=== PATIENT | male | born 1940 | race Caucasian/White ===

== ENCOUNTER → 2019-01-11 | Outpatient (CLI) | payer OTHER, MEDICARE ==
[~2019-01-11] MED LIST: AMLO10 PO; ASCO500; ASPI325 PO; CYAN1000I; FOLI1 PO; HYDCHL12.5 PO; LOVA40; Multiple Vitam1 EAC1; PANT40 PO; PYRI100; RANI150 PO; Ramipril10 MG; SILDENAFIL20 MG; TOCO1000
[2019-01-12 13:07] LABS: FATS, NEUTRAL Normal (.); FATS, TOTAL Normal (.)
== END | disposition home or self-care (01) ==
LOC: LAB EV 03:00
PROVIDERS: Internal Medicine Gastroenterology
DX: R19.7 Diarrhea, unspecified (principal)
CPT/HCPCS: 82705

== ENCOUNTER → 2019-01-12 | Outpatient (CLI) | payer OTHER, MEDICARE | END | disposition home or self-care (01) | LOC: LAB EV 08:00 | DX: R19.7 Diarrhea, unspecified (principal) | CPT/HCPCS: 87329 ==

== ENCOUNTER 2019-01-18 09:27 | Day surgery (SDC) | payer OTHER, MEDICARE ==
[~2019-01-18] VITALS: Ht 172.7 cm; Wt 67.9 kg
--- NOTE | 2019-01-18 11:09 | NUR ---
01/18/19 1109 Dallin Laguna 1ST IV ATTEMPT IN RH UNSUCCESSFUL, ORSC.BDK 2ND IV ATTEMPT IN RAC UNSUCCESSFUL, ORSC.BDK 3RD IV ATTEMPT IN RH UNSUCCESSFUL, ORSC.NVP 4TH IV ATTEMPT IN LFA SUCCESSFUL, ORSC.NVP
== END 2019-01-18 12:58 | disposition home or self-care (01) ==
LOC: ORSCSDS 09:27
PROVIDERS: Internal Medicine Gastroenterology
PROC: 0DBB8ZX Excision of Ileum, Via Natural or Artificial Opening Endoscopic, Diagnostic (ICD-10-PCS; principal; 2019-01-18 11:00)
PROC: 0DB58ZX Excision of Esophagus, Via Natural or Artificial Opening Endoscopic, Diagnostic (ICD-10-PCS; principal; 2019-01-18 11:00)
PROC: 0DBE8ZX Excision of Large Intestine, Via Natural or Artificial Opening Endoscopic, Diagnostic (ICD-10-PCS; principal; 2019-01-18 11:00)
PROC: 0DB68ZX Excision of Stomach, Via Natural or Artificial Opening Endoscopic, Diagnostic (ICD-10-PCS; principal; 2019-01-18 11:00)
DX: R19.7 Diarrhea, unspecified (principal); R63.4 Abnormal weight loss; K52.831 Collagenous colitis; K44.9 Diaphragmatic hernia without obstruction or gangrene; K64.8 Other hemorrhoids; F17.210 Nicotine dependence, cigarettes, uncomplicated; I10 Essential (primary) hypertension; I25.2 Old myocardial infarction; J44.9 Chronic obstructive pulmonary disease, unspecified; E78.5 Hyperlipidemia, unspecified; Z79.899 Other long term (current) drug therapy
CPT/HCPCS: 88305; 88313; 88342; J2250; J2704; J7120

== ENCOUNTER → 2019-01-23 | Outpatient (CLI) | payer OTHER, MEDICARE | LOC: LAB SHORT 09:46 → LAB 09:46 → LAB FUT 01-09 14:00 → EDSTATUS 01-09 14:00 | PROVIDERS: Internal Medicine Gastroenterology | DX: R19.7 Diarrhea, unspecified (principal) | CPT/HCPCS: 36415; 84302; 84999 ==

== ENCOUNTER 2020-08-06 10:19 | Day surgery (SDC) | payer MEDICARE ==
[~2020-08-06] VITALS: Ht 167.6 cm; Wt 76.0 kg
[2020-08-06] MEDS ORDERED: ASPIR 8181 M1 PO (10:56)
[2020-08-06] MEDS ORDERED: Chantix1 MG PO (10:57)
--- NOTE | 2020-08-06 13:20 | NUR ---
PT RETURNED TO RECOVERY ROOM IN BED. BILAT GROINS SOFT NON-TENDER WITH NO HEMATOMAS OR BLEEDING AND INTACT DRESSINGS. PT DENIES BACK PAIN OR CHEST PAIN.BILAT DOPPLER DP PULSES. CALL LIGHT IN REACH.
--- NOTE | 2020-08-06 16:07 | NUR ---
PT DRESSED, IV DC'D INTACT, PT DC'D BY WC WITH DRIVING PT HOME, PT AMB TO BTR OK
[2020-10-11] MEDS ORDERED: Prednisone20 MG PO (02:43)
[2020-10-11] MEDS ORDERED: Norco 5-325 Ta1 EACH PO (02:43)
== END 2020-08-06 16:30 | disposition home or self-care (01) ==
LOC: MHTC 10:19
DX: I70.213 Atherosclerosis of native arteries of extremities with intermittent claudication, bilateral legs (principal)
CPT/HCPCS: 75625; 75716; 76937; 99152; 99153; C1725; C1757; C1769; C1876; C1887; C1894; C9765; J1644; J2250; J3010; J7030; J7050; Q9967

== ENCOUNTER → 2023-05-25 | Outpatient (CLI) | payer MEDICARE ==
[~2023-05-25] MED LIST changes: +ASPIR 8181 M1 PO; +Aspir 8181 MG PO; +CEPH500 PO; +Chantix1 MG PO; +FISH OIL 1,2001 EAC7 PO; +FLOMAX0.4 MG PO; +GLUCHON PO; +HYDCHL25 PO; +MULVITA PO; +Norco 5-325 Ta1 EACH PO; +PANTOPRAZOLE SO40 M2 PO; +PLAVIX75 MG PO; +PSYLLIUM FIBER0.4 GM PO; +Prednisone20 MG PO; +ROSUVASTATIN CA20 MG PO; +VITAMIN D31250 MC2 PO
[2023-05-25 13:10] LABS: BASOPHILS ABSOLUTE AUTO 0.04 K/mm3 (0.00-0.23); BASOPHILS PERCENT AUTO 1 % (0-2); EOSINOPHILS ABSOLUTE AUTO 0.23 K/mm3 (0.00-0.68); EOSINOPHILS PERCENT AUTO 3 % (0-6); Hematocrit 34.9 % (37.0-53.0); Hemoglobin 11.4 g/dL (13.5-17.5); IMMATURE GRAN PERCENT AUTO 2 % (0-1); LYMPHOCYTES PERCENT AUTO 6 % (21-46); MONOCYTES ABSOLUTE AUTO 1.05 K/mm3 (0.16-1.47); MONOCYTES PERCENT AUTO 12 % (4-13); Mean Corpuscular HGB 29.8 pg (26.0-34.0); Mean Corpuscular HGB Conc 32.7 g/dL (31.5-36.5); Mean Corpuscular Volume 91 fL (80-100); Mean Platelet Volume 10.4 fL (9.1-12.4); NEUTROPHILS ABSOLUTE AUTO 6.58 K/mm3 (1.96-9.15); NEUTROPHILS PERCENT AUTO 77 % (41-73); NRBC ABSOLUTE 0.02 K/mm3 (0.00-0.02); NRBC Auto 0.2 /100 WBC (0.0-0.2); Platelet Count 335 K/mm3 (150-400); RDW Coefficient Variation 17.9 % (11.7-14.2); RDW Standard Deviation 52.1 fL (35.1-46.3); Red Blood Cell Count 3.82 M/mm3 (4.30-5.90)
[2023-05-25 13:36] LABS: Albumin, Blood 2.9 g/dL (3.4-5.0); Albumin/Globulin Ratio 0.6 (0.8-1.8); Bilirubin, Total 0.6 mg/dL (0.1-1.0); Bun/Creatinine Ratio 22.7 (12.0-20.0); Creatinine, Blood 1.28 mg/dL (0.60-1.20); Globulin, Blood 4.5 g/dL (2.2-4.0); Potassium, Blood 4.1 mmol/L (3.5-5.5); Total Protein, Blood 7.4 g/dL (6.4-8.2)
== END | disposition home or self-care (01) ==
LOC: LAB SHORT 12:39 → LAB 12:39 → LAB FUT 04-28 09:15
PROVIDERS: Internal Medicine Hematology & Oncology
DX: C67.9 Malignant neoplasm of bladder, unspecified (principal)
CPT/HCPCS: 36415; 80053; 85025

== ENCOUNTER 2023-05-27 14:58 | Emergency (ER) | payer MEDICARE ==
[~2023-05-27] VITALS: Ht 172.7 cm; Wt 83.9 kg
[~2023-05-27 14:58] MED LIST changes: -Aspir 8181 MG PO; -CEPH500 PO; -FISH OIL 1,2001 EAC7 PO; -FLOMAX0.4 MG PO; -GLUCHON PO; -HYDCHL25 PO; -MULVITA PO; -PANTOPRAZOLE SO40 M2 PO; -PLAVIX75 MG PO; -PSYLLIUM FIBER0.4 GM PO; -ROSUVASTATIN CA20 MG PO; -VITAMIN D31250 MC2 PO
[2023-05-27] MEDS ORDERED: PANTOPRAZOLE SO40 M2 PO (15:13)
[2023-05-27] MEDS ORDERED: ROSUVASTATIN CA20 MG PO (15:13)
[2023-05-27] MEDS ORDERED: PLAVIX75 MG PO (15:14)
[2023-05-27] MEDS ORDERED: HYDCHL25 PO (15:14)
[2023-05-27] MEDS ORDERED: Aspir 8181 MG PO (15:20)
[2023-05-27] MEDS ORDERED: FLOMAX0.4 MG PO (15:20)
[2023-05-27] MEDS ORDERED: MULVITA PO (15:20)
[2023-05-27] MEDS ORDERED: FISH OIL 1,2001 EAC7 PO (15:21)
[2023-05-27] MEDS ORDERED: PSYLLIUM FIBER0.4 GM PO (15:21)
[2023-05-27] MEDS ORDERED: GLUCHON PO (15:22)
[2023-05-27] MEDS ORDERED: VITAMIN D31250 MC2 PO (15:22)
[2023-05-27 16:13] LABS: Source, Urine Foley catheter
[2023-05-27 16:20] LABS: Appearance, Urine Cloudy (Clear); Bilirubin, Urine Neg (Neg); Blood, Urine 5+ (Neg); Color, Urine Amber (P-Yellow); Glucose Qualitative, Urine Neg (Neg); Ketones, Urine Neg (Neg); Leukocyte Esterase, Urine 3+ (Neg); Nitrite, Urine Neg (Neg); Protein, Urine 4+ (Neg); Specific Gravity, Urine 1.015 (1.003-1.022); Urobilinogen, Urine NORM (Normal)
[2023-05-27 16:26] LABS: Bacteria Many /hpf; Red Blood Cells, Urine TNTC /hpf (0-2); Squamous Epithelial Cells Not Seen /hpf (Few); White Blood Cells, Urine TNTC /hpf (0-5)
[2023-05-27] MEDS ORDERED: CEPH500 PO (16:51)
[2023-05-27 19:00] VITALS: BP 134/66
== END 2023-05-27 19:28 | disposition home or self-care (01) ==
LOC: ER 14:58
PROVIDERS: Physician Assistant
DX: N39.0 Urinary tract infection, site not specified (principal); K21.9 Gastro-esophageal reflux disease without esophagitis; F17.200 Nicotine dependence, unspecified, uncomplicated; Z79.899 Other long term (current) drug therapy; Z79.52 Long term (current) use of systemic steroids
CPT/HCPCS: 51702; 81001; 87077; 87086; 87186; 96360; 99284-25; A9270; J7030

== ENCOUNTER → 2023-06-03 | Outpatient (CLI) | payer MEDICARE ==
[~2023-06-03] MED LIST changes: +Aspir 8181 MG PO; +CEPH500 PO; +FISH OIL 1,2001 EAC7 PO; +FLOMAX0.4 MG PO; +GLUCHON PO; +HYDCHL25 PO; +MULVITA PO; +PANTOPRAZOLE SO40 M2 PO; +PLAVIX75 MG PO; +PSYLLIUM FIBER0.4 GM PO; +ROSUVASTATIN CA20 MG PO; +VITAMIN D31250 MC2 PO
[2023-06-03 15:03] LABS: C DIFFICILE DNA NEGATIVE (Negative)
== END | disposition home or self-care (01) ==
LOC: LAB 10:00 → LAB SHORT 10:00
PROVIDERS: Radiology Radiation Oncology
DX: C67.2 Malignant neoplasm of lateral wall of bladder (principal); R19.7 Diarrhea, unspecified
CPT/HCPCS: 87493

== ENCOUNTER → 2023-06-29 | Outpatient (CLI) | payer MEDICARE | LOC: LAB SHORT 13:18 → LAB 13:18 | DX: N39.0 Urinary tract infection, site not specified (principal) | CPT/HCPCS: 87086 ==

== ENCOUNTER 2023-07-12 07:22 | Day surgery (SDC) | payer MEDICARE ==
[2023-07-12] VITALS (9 sets, daily range): BP systolic 125–164; BP diastolic 66–90
[~2023-07-12] VITALS: Ht 172.7 cm; Wt 69.0 kg
[~2023-07-12 07:22] MED LIST changes: +ELLURA200 MG PO; +MYRBETRIQ8 MG/1 ML PO; +OXYC5 PO
[2023-07-12] MEDS ORDERED: NS 1,000 ML IV ONE (07:41)
[2023-07-12] MEDS ORDERED: Midazolam HCl 1MG / ML 2ML Vial ONE ×2 (08:29→09:28)
[2023-07-12] MEDS ORDERED: FentaNYL Citrate 50 MCG/ML 2 ML Injection ONE ×2 (08:29→09:22)
[2023-07-12] MEDS ORDERED: NS 500 ML IV ONE (08:29)
--- NOTE | 2023-07-12 13:40 | NUR ---
PT VERBALIZED UNDERSTANDING OF WRITTEN AND VERBAL D/C INST. ABD BINDER AND 2 LARGE CATH BAGS GIVEN TO PT. ABD BINDER PLACED ON D/C. IV REMOVED. PT TAKEN OUT OF THE HRT CENTER VIA W/C.
== END 2023-07-12 13:15 | disposition home or self-care (01) ==
LOC: SDS 07:22 → MHTC 07:23 → SDS 13:15
DX: N13.30 Unspecified hydronephrosis (principal); N32.0 Bladder-neck obstruction; F17.210 Nicotine dependence, cigarettes, uncomplicated; I25.2 Old myocardial infarction; K21.9 Gastro-esophageal reflux disease without esophagitis; E78.5 Hyperlipidemia, unspecified; I10 Essential (primary) hypertension; Z79.82 Long term (current) use of aspirin; I25.10 Atherosclerotic heart disease of native coronary artery without angina pectoris; Z79.02 Long term (current) use of antithrombotics/antiplatelets
CPT/HCPCS: 50432; 50693; 76937; 99152; 99153; C1725; C1729; C1769; C1887; C1894; C2617; J2250; J3010; J7030; J7040; Q9967

== ENCOUNTER 2023-07-26 11:33 | Day surgery (SDC) | payer MEDICARE ==
[~2023-07-26] VITALS: Ht 172.7 cm; Wt 69.0 kg
[2023-07-26] MEDS ORDERED: NS 250 ML IV ONE (11:46)
[2023-07-26 11:47] VITALS: BP 163/71
[2023-07-26 12:36] VITALS: BP 145/71
--- NOTE | 2023-07-26 12:49 | NUR ---
PT AND S/O VERBALIZES UNDERSTANDING WRITTEN AND VERBAL INSTRUCTIONS. VSS. SALVATORE. PT ASSISTED WITH DRESSING HIMSELF. TOLERATES WELL. PT DC TO HOME VIA WC BY S/O
== END 2023-07-26 12:52 | disposition home or self-care (01) ==
LOC: MHTC 11:33 → ORSCMMR 11:36 → MHTC 11:36
DX: N99.522 Malfunction of incontinent external stoma of urinary tract (principal); N13.30 Unspecified hydronephrosis; N99.528 Other complication of incontinent external stoma of urinary tract; N13.4 Hydroureter; N32.0 Bladder-neck obstruction; F17.210 Nicotine dependence, cigarettes, uncomplicated; I25.2 Old myocardial infarction; K21.9 Gastro-esophageal reflux disease without esophagitis; I25.10 Atherosclerotic heart disease of native coronary artery without angina pectoris; E78.5 Hyperlipidemia, unspecified
CPT/HCPCS: 50435; C1729; C1769; J7050; Q9967

== ENCOUNTER 2023-10-01 23:42 | Inpatient (IN) | payer MEDICARE ==
[~2023-10-01] VITALS: Ht 172.7 cm; Wt 74.8 kg
[~2023-10-01 23:42] MED LIST changes: +DOCUZEN 8.6-501 EACH PO; +GABA300 PO; +MYRBETRIQ50 MG PO; +POLY500 PO; +SULTRIDS PO
[2023-10-02] MEDS ORDERED: Ondansetron HCl 2 MG / ML 2ML Vial IV PRN (01:40)
[2023-10-02] MEDS ORDERED: Acetaminophen 325 MG TABLET PO PRN (01:40)
[2023-10-02] MEDS ORDERED: FentaNYL Citrate 50 MCG/ML 2 ML Injection IV PRN (01:40)
[2023-10-02] MEDS ORDERED: SULTRIDS PO (01:49)
[2023-10-02 02:07] LABS: International Normalized Ratio 0.97; Prothrombin Time Results 10.4 Sec (9.7-11.5)
[2023-10-02 02:09] LABS: Albumin, Blood 2.3 g/dL (3.4-5.0); Albumin/Globulin Ratio 0.6 (0.8-1.8); Bilirubin, Total 0.2 mg/dL (0.1-1.0); Bun/Creatinine Ratio 13.2 (12.0-20.0); Calcium, Blood 8.5 mg/dL (8.5-10.1); Creatinine, Blood 1.06 mg/dL (0.60-1.20); Globulin, Blood 4.1 g/dL (2.2-4.0); Potassium, Blood 3.9 mmol/L (3.5-5.5); Total Protein, Blood 6.4 g/dL (6.4-8.2)
[2023-10-02 02:10] LABS: BASOPHILS ABSOLUTE AUTO 0.02 K/mm3 (0.00-0.23); BASOPHILS PERCENT AUTO 0 % (0-2); EOSINOPHILS PERCENT AUTO 3 % (0-6); Hematocrit 28.1 % (37.0-53.0); Hemoglobin 8.9 g/dL (13.5-17.5); IMMATURE GRAN ABSOLUTE AUTO 0.05 K/mm3 (0.00-0.10); IMMATURE GRAN PERCENT AUTO 1 % (0-1); LYMPHOCYTES ABSOLUTE AUTO 1.06 K/mm3 (0.84-5.20); LYMPHOCYTES PERCENT AUTO 18 % (21-46); MONOCYTES ABSOLUTE AUTO 0.58 K/mm3 (0.16-1.47); MONOCYTES PERCENT AUTO 10 % (4-13); Mean Corpuscular HGB 27.4 pg (26.0-34.0); Mean Corpuscular HGB Conc 31.7 g/dL (31.5-36.5); Mean Corpuscular Volume 87 fL (80-100); Mean Platelet Volume 9.7 fL (9.1-12.4); NEUTROPHILS ABSOLUTE AUTO 3.97 K/mm3 (1.96-9.15); NEUTROPHILS PERCENT AUTO 68 % (41-73); Platelet Count 312 K/mm3 (150-400); RDW Coefficient Variation 16.6 % (11.7-14.2); RDW Standard Deviation 52.4 fL (35.1-46.3); Red Blood Cell Count 3.25 M/mm3 (4.30-5.90); White Blood Cell Count 5.88 K/mm3 (4.00-11.30)
[2023-10-02 02:14] LABS: Source, Urine Clean Catch
[2023-10-02 02:17] LABS: Bilirubin, Urine Neg (Neg); Blood, Urine 5+ (Neg); Glucose Qualitative, Urine Neg (Neg); Ketones, Urine 1+ (Neg); Leukocyte Esterase, Urine 3+ (Neg); Nitrite, Urine Neg (Neg); Protein, Urine 3+ (Neg); Urobilinogen, Urine 1+ (Normal)
[2023-10-02 02:19] LABS: Appearance, Urine Cloudy (Clear); Color, Urine Brown (P-Yellow)
[2023-10-02 02:32] LABS: Bacteria Mod /hpf; Red Blood Cells, Urine TNTC /hpf (0-2); Squamous Epithelial Cells Not Seen /hpf (Few); White Blood Cells, Urine 50-100 /hpf (0-5)
[2023-10-02 02:40] VITALS: BP 155/72
[2023-10-02] MEDS ORDERED: Docusate Sodium/Senna 1 Tab PO PRN (06:30)
--- NOTE | 2023-10-02 06:31 | NUR ---
SHIFT SUMMARY MYKE ARRIVED FROM THE ED AT 0235 ACCOMPANIED BY HIS . PT IS A/O TO SELF AND ONLY, ADMIT COMPLETED WITH HELP FROM . PT SKIN IN GOOD SHAPE, PT IS PLEASANT AND DIRECTIBLE, PER PT HAS TENDENCY TO WANDER OUT OF BED, BED ALARM KEPT ON AT ALL TIMES. PT SLEPT WELL WITH NO IMPULSIVE BEHAVIOR. PT IS HERE BECAUSE HE PULLED OUT HIS RIGHT NEPHROSTOMY. PT ON 1L O2, SATTING >90.
[2023-10-02] MEDS ORDERED: Vancomycin HCL 1,500 MG in NS 250 ML IV ONE (06:35)
[2023-10-02 07:19] VITALS: BP 136/67
[2023-10-02] MEDS ORDERED: Trospium Chloride 20 MG Tab PO SCH (07:30)
[2023-10-02] MEDS ORDERED: Gabapentin 300 MG Cap PO SCH (09:00)
[2023-10-02] MEDS ORDERED: Aspirin 81 MG TabEC PO SCH (09:00)
[2023-10-02] MEDS ORDERED: CefTRIAXone Sodium 1,000 MG in NS 100 ML IV SCH (09:00)
[2023-10-02] MEDS ORDERED: Calcium Polycarbophil 625 MG Tab PO SCH (09:00)
[2023-10-02] MEDS ORDERED: Clopidogrel Bisulfate 75 MG Tab PO SCH (09:00)
[2023-10-02] MEDS ORDERED: Enoxaparin 40 MG/0.4 ML SYR SC SCH (09:00)
[2023-10-02 15:20] VITALS: BP 117/58
[2023-10-02] MEDS ORDERED: NS 250 ML IV PRN (15:30)
--- NOTE | 2023-10-02 17:57 | NUR ---
SUMMARY- PT AAOX1 TO SELF ONLY THIS SHIFT. X1 ASIST TO THE BSC. PT'S LEFT NEPHROSTOMY TUBE DRESSING BECAME REMOVED FROM PT'S LEFT FLANK THIS SHIFT, SO SITE WAS CLEANSED WITH CHG AND NEW CLEAN DRESSING WAS REPLACED. PT HAD MINOR R SHOULDER PAIN THIS SHIFT-WHICH WAS HELPED BY TYLENOL. PT'S LEFT NEPHROSTOMY TUBE IS PATENT AND DRAINING WELL.
[2023-10-02 19:31] VITALS: BP 151/71
[2023-10-02] MEDS ORDERED: Tamsulosin HCl 0.4 MG Cap PO SCH (21:00)
[2023-10-02] MEDS ORDERED: QUEtiapine Fumarate 25 MG Tab PO PRN (22:20)
[2023-10-03 05:37] VITALS: BP 150/80
[2023-10-03] MEDS ORDERED: Pantoprazole Sodium 40 MG Tab PO SCH (06:00)
--- NOTE | 2023-10-03 07:25 | NUR ---
SHIFT SUMMARY PATIENT WAS CONFUSED AND KEPT SETTING BED ALARM OFF. CONTACTED HOSPITALIST FOR MEDICATION FOR SLEEP. HELPED EVENTUALLY. HAD LARGE BM SOFT TO LIQUID. UP TO BSC BUT ALSO INCONTNENT. TELE SR@ 73. PATIENT SOUND ASLEEP AT 0600, HOLDING AM MEDS UNTIL AWAKENS. R NEPHOSTOMY TUBE DRAINING LITE PINK URINE.
[2023-10-03 07:41] VITALS: BP 159/79
[2023-10-03] MEDS ORDERED: Vancomycin HCL 1,250 MG in NS 250 ML IV SCH (08:00)
[2023-10-03] MEDS ORDERED: OLANZapine ODT 5 MG Tab MM PRN (12:50)
--- NOTE | 2023-10-03 15:30 | NUR ---
SUMMARY- PT AAOX1 THIS SHIFT TO SELF ONLY. PT IS ALSO AWARE OF FAMILY WHEN THEY ARE PRESENT IN THE ROOM. X1 ASSIST TO THE BSC. PT WAS NPO AFTER MIDNIGHT UNTIL 1515 TONIGHT IN HOPES OF [facility] CONSULT AND REPLACEMENT OF RIGHT NEPH TUBE. THIS RN HAS NOT HEARD FROM IR REGARDING CONSULT. PT DENIED PAIN THIS SHIFT. LEFT NEPH TUBE DRAINING WELL.
[2023-10-03 16:02] VITALS: BP 126/67
[2023-10-03] MEDS ORDERED: QUEtiapine Fumarate 25 MG Tab PO SCH (18:00)
[2023-10-03 19:52] VITALS: BP 143/71
--- NOTE | 2023-10-04 04:45 | NUR ---
SHIFT SUMMARY PATIENT WAS SOUND ASLEEP UNTIL 0200, WITHHELD HIS HS MEDS UNTIL HE WOKE UP. HE IS MUCH MORE ALERT AND ORIENTED TONIGHT. TELE SR @ 83. KEPT NPO AFTER MIDNIGHT INCASE HE HAS SURGERY TODAY.
[2023-10-04 05:53] VITALS: BP 154/82
[2023-10-04 07:48] VITALS: BP 126/76
[2023-10-04] MEDS ORDERED: NS 250 ML IV ONE (15:10)
--- NOTE | 2023-10-04 16:18 | NUR ---
NO ACUTE CHANGES. PT IS AOX1 AND COOPERATIVE OF CARE. PT HAS BEEN PLEASANT AND DOES WELL WITH SITTING AT BEDSIDE WITH HIM. PT RESTING MOST OF THE MORNING ABLE TO WAKE UP AND TAKE PILLS. PT HAS BEEN AWAKE LATER IN THE DAY AND IS LISTENING TO MUSIC WITH . PT HAS BEEN NPO AND IS AWAITING L NEPHROSTOMY BAG REPLACEMENT BY DR MERCADO.CALL LIGHT IS WITHIN REACH AND BED ALARM IN PLACE. WILL CONTINUE TO MONITOR.
[2023-10-04] MEDS ORDERED: NS 500 ML IV ONE (17:13)
[2023-10-04] MEDS ORDERED: Midazolam HCl 1MG / ML 2ML Vial ONE (17:40)
[2023-10-04] MEDS ORDERED: FentaNYL Citrate 50 MCG/ML 2 ML Injection ONE ×2 (17:41→18:01)
[2023-10-04 18:30] VITALS: BP 159/79
[2023-10-04 19:04] VITALS: BP 151/87
[2023-10-04 19:48] VITALS: BP 142/68
[2023-10-04 20:35] VITALS: BP 117/73
[2023-10-04] MEDS ORDERED: Trimethoprim/Sulfamethoxazole DS Tab PO SCH (21:00)
--- NOTE | 2023-10-05 02:56 | NUR ---
SHIFT SUMMARY 83 YR M ADMITTED ON 10/02/23. DNR. NO ACUTE CHANGES THIS SHIFT. PT PREFERS TO GO BY THE NAME "SKIP". WAS AT BEDSIDE AT BEGINNING OF SHIFT AND WAITED FOR PT TO GO TO SLEEP BEFORE LEAVING. PT HAS SLEPT THROUGH MOST OF THIS SHIFT BUT WAS EASILY AWAKED FOR MEDS AND VITALS. NO C/O PAIN OR DISCOMFORT. PT DID NOT ATTEMPT TO GET OUT OF BED ON HIS OWN THIS SHIFT. HE APPEARED ALERT AND AWARE DURING THE TIME THAT HE WAS AWAKE. BED IN LOW POSITION WITH ALARM ON AND CALL LIGHT IN REACH.
[2023-10-05 03:47] VITALS: BP 130/67
[2023-10-05 06:06] LABS: BASOPHILS ABSOLUTE AUTO 0.03 K/mm3 (0.00-0.23); BASOPHILS PERCENT AUTO 0 % (0-2); EOSINOPHILS ABSOLUTE AUTO 0.27 K/mm3 (0.00-0.68); EOSINOPHILS PERCENT AUTO 4 % (0-6); Hematocrit 29.8 % (37.0-53.0); Hemoglobin 9.5 g/dL (13.5-17.5); IMMATURE GRAN ABSOLUTE AUTO 0.06 K/mm3 (0.00-0.10); IMMATURE GRAN PERCENT AUTO 1 % (0-1); LYMPHOCYTES ABSOLUTE AUTO 1.55 K/mm3 (0.84-5.20); LYMPHOCYTES PERCENT AUTO 23 % (21-46); MONOCYTES ABSOLUTE AUTO 0.63 K/mm3 (0.16-1.47); MONOCYTES PERCENT AUTO 9 % (4-13); Mean Corpuscular HGB 27.1 pg (26.0-34.0); Mean Corpuscular HGB Conc 31.9 g/dL (31.5-36.5); Mean Corpuscular Volume 85 fL (80-100); Mean Platelet Volume 9.1 fL (9.1-12.4); NEUTROPHILS ABSOLUTE AUTO 4.26 K/mm3 (1.96-9.15); NEUTROPHILS PERCENT AUTO 63 % (41-73); Platelet Count 337 K/mm3 (150-400); RDW Coefficient Variation 17.3 % (11.7-14.2); RDW Standard Deviation 53.2 fL (35.1-46.3)
[2023-10-05 06:50] LABS: Albumin, Blood 2.4 g/dL (3.4-5.0); Anion Gap 8 mmol/L (3-11); Blood Urea Nitrogen 15 mg/dL (8-24); Bun/Creatinine Ratio 14.7 (12.0-20.0); CO2, Blood 25 mmol/L (21-32); Chloride, Blood 113 mmol/L (98-108); Creatinine, Blood 1.02 mg/dL (0.60-1.20); Glomerular Filtration Rate 72 (60-); Glucose, Blood 118 mg/dL (70-99); Magnesium, Blood 1.9 mg/dL (1.6-2.4); Phosphorus, Blood 4.2 mg/dL (2.5-4.9); Potassium, Blood 4.2 mmol/L (3.5-5.5); Sodium, Blood 142 mmol/L (136-145)
[2023-10-05 07:53] VITALS: BP 134/74
[2023-10-05] MEDS ORDERED: QUET25 PO (12:37)
[2023-10-05] MEDS ORDERED: Sanctura20 MG PO (12:37)
--- NOTE | 2023-10-05 14:15 | NUR ---
83 YR OLD MALE ALERT AND ORIENTED TIMES 2 OFTEN FORGETFUL AND SOMETIMES CONFUSED. VSS/ NO SIGNS OF INFECTION. NO COMPLAINTS OF PAIN. LEFT NEPHROSTOMY DRAINING, YELLOW URINE WITH NO SEDIMENT, RIGHT NEPHROSTOMY REMOVED, NO SIGNS OF INFECTIONS AT EITHER SITE. DISCHARGE HOME TO FAMILY AND HOME HEALTH. PT AND OT FOLLOW UP. ULTRA SOUND SCHEDULED FOR 1 TO 2 WEEKS. PATIENT ABLE TO FEED HIMSELF AND UP TO BATHROOM WITH ASSISTANCE.
--- NOTE | 2023-10-05 15:03 | NUR ---
PT IV WAS REMOVED (NO SIGNS OF INFECTION) AND ALL BELONGINGS GIVEN TO .
== END 2023-10-05 13:35 | disposition home health service (06) | DRG 699 ==
LOC: ER 23:42 → MEDS 23:43 → ENPENDDIS 10-05 11:15 → MEDS 10-05 13:35
PROVIDERS: Emergency Medicine; Family Medicine; ADMIT Internal Medicine
DX: T83.022A Displacement of nephrostomy catheter, initial encounter (principal); C66.9 Malignant neoplasm of unspecified ureter; N39.0 Urinary tract infection, site not specified; J96.11 Chronic respiratory failure with hypoxia; F05 Delirium due to known physiological condition; F03.90 Unspecified dementia, unspecified severity, without behavioral disturbance, psychotic disturbance, mood disturbance, and anxiety; K21.9 Gastro-esophageal reflux disease without esophagitis; E78.5 Hyperlipidemia, unspecified; F17.210 Nicotine dependence, cigarettes, uncomplicated; N48.89 Other specified disorders of penis; N40.0 Benign prostatic hyperplasia without lower urinary tract symptoms; I12.9 Hypertensive chronic kidney disease with stage 1 through stage 4 chronic kidney disease, or unspecified chronic kidney disease; N18.30 Chronic kidney disease, stage 3 unspecified; R53.1 Weakness; Z85.51 Personal history of malignant neoplasm of bladder; Z79.02 Long term (current) use of antithrombotics/antiplatelets; Z79.82 Long term (current) use of aspirin; Z99.81 Dependence on supplemental oxygen; Z98.52 Vasectomy status; Z95.820 Peripheral vascular angioplasty status with implants and grafts
CPT/HCPCS: 36415; 76770; 76937; 80053; 80069; 81001; 83735; 83880; 85025; 85610; 87077; 87086; 87186; 94760; 96365; 96366; 96368; 96372; 97110; 97116; 97162; 99152; 99284; A9270; C1769; C1887; C1894; G0378; J0696; J1650; J2250; J3010; J3370; J7040; J7050

== ENCOUNTER → 2023-10-13 | Outpatient (CLI) | payer MEDICARE ==
[~2023-10-13] MED LIST changes: +QUET25 PO; +Sanctura20 MG PO
[2023-10-13 10:28] LABS: Source, Urine Voided
[2023-10-13 11:47] LABS: Bilirubin, Urine Neg (Neg); Blood, Urine 5+ (Neg); Color, Urine Yellow (P-Yellow); Glucose Qualitative, Urine Neg (Neg); Ketones, Urine Neg (Neg); Leukocyte Esterase, Urine 3+ (Neg); Nitrite, Urine Neg (Neg); Protein, Urine 3+ (Neg); Specific Gravity, Urine 1.015 (1.003-1.022); Urobilinogen, Urine NORM (Normal)
[2023-10-13 11:56] LABS: Appearance, Urine Cloudy (Clear)
[2023-10-13 11:58] LABS: Bacteria Few /hpf; Red Blood Cells, Urine TNTC /hpf (0-2); Squamous Epithelial Cells Few /hpf (Few); Yeast/Fungi Urine Few /hpf
== END | disposition home or self-care (01) ==
LOC: LAB 10:23 → LAB SHORT 10:23
PROVIDERS: Family Medicine
DX: R30.0 Dysuria (principal)
CPT/HCPCS: 81001; 87086

== ENCOUNTER 2024-02-01 12:40 | Emergency (ER) | payer MEDICARE ==
[~2024-02-01] VITALS: Ht 172.7 cm; Wt 65.8 kg
[2024-02-01 16:24] LABS: BASOPHILS ABSOLUTE AUTO 0.03 K/mm3 (0.00-0.23); BASOPHILS PERCENT AUTO 0 % (0-2); EOSINOPHILS ABSOLUTE AUTO 0.03 K/mm3 (0.00-0.68); EOSINOPHILS PERCENT AUTO 0 % (0-6); Hematocrit 28.5 % (37.0-53.0); Hemoglobin 8.6 g/dL (13.5-17.5); IMMATURE GRAN ABSOLUTE AUTO 0.09 K/mm3 (0.00-0.10); IMMATURE GRAN PERCENT AUTO 1 % (0-1); LYMPHOCYTES ABSOLUTE AUTO 1.57 K/mm3 (0.84-5.20); LYMPHOCYTES PERCENT AUTO 14 % (21-46); MONOCYTES ABSOLUTE AUTO 0.76 K/mm3 (0.16-1.47); MONOCYTES PERCENT AUTO 7 % (4-13); Mean Corpuscular HGB Conc 30.2 g/dL (31.5-36.5); Mean Corpuscular Volume 80 fL (80-100); Mean Platelet Volume 9.4 fL (9.1-12.4); NEUTROPHILS ABSOLUTE AUTO 8.72 K/mm3 (1.96-9.15); NEUTROPHILS PERCENT AUTO 78 % (41-73); Platelet Count 450 K/mm3 (150-400); RDW Coefficient Variation 19.9 % (11.7-14.2); RDW Standard Deviation 55.9 fL (35.1-46.3); Red Blood Cell Count 3.58 M/mm3 (4.30-5.90)
[2024-02-01 16:37] LABS: Albumin, Blood 2.7 g/dL (3.4-5.0); Albumin/Globulin Ratio 0.6 (0.8-1.8); Bilirubin, Total 0.2 mg/dL (0.1-1.0); Calcium, Blood 9.1 mg/dL (8.5-10.1); Creatinine, Blood 1.19 mg/dL (0.60-1.20); Globulin, Blood 4.9 g/dL (2.2-4.0); Potassium, Blood 4.1 mmol/L (3.5-5.5); Total Protein, Blood 7.6 g/dL (6.4-8.2)
[2024-02-01] MEDS ORDERED: MELA3 PO (17:10)
[2024-02-01] MEDS ORDERED: TRAZ50 PO (17:11)
[2024-02-01 20:00] LABS: Influenza A, PCR NEGATIVE (NEGATIVE); Influenza B, PCR NEGATIVE (NEGATIVE); Resp Syncytial Virus, PCR NEGATIVE (NEGATIVE); SARS-Cov-2 (COVID-19) PCR, MMC NEGATIVE (NEGATIVE)
[2024-02-01 22:30] VITALS: BP 157/81
== END 2024-02-01 23:08 | disposition home or self-care (01) ==
LOC: ER 12:40
PROVIDERS: Physician Assistant; Student in an Organized Health Care Education/Training Program
DX: R11.2 Nausea with vomiting, unspecified (principal); K21.9 Gastro-esophageal reflux disease without esophagitis; I25.2 Old myocardial infarction; F17.200 Nicotine dependence, unspecified, uncomplicated; Z85.51 Personal history of malignant neoplasm of bladder; Z79.02 Long term (current) use of antithrombotics/antiplatelets; Z79.899 Other long term (current) drug therapy
CPT/HCPCS: 0241U; 70450; 70496; 70498; 80053; 83690; 84484; 85025; 93005; 93010; 99284-25; Q9967

== ENCOUNTER 2024-05-14 14:40 | Inpatient (IN) | payer MEDICARE ==
[~2024-05-14] VITALS: Ht 175.3 cm; Wt 63.5 kg
[~2024-05-14 14:40] MED LIST changes: -ATROPINE SULFATE2 M1 SL; -Ativan1 MG PO; -CENTRUM SILVER1 EAC2 PO; -MORP20L SL; -Nicoderm Cq1 EAC1 TOP; -TAMSULOSIN HCL0.4 M1 PO; -TRANSDERM-SCOP1 EA13 TD
[2024-05-14 15:12] LABS: Hematocrit 22.5 % (37.0-53.0); Hemoglobin 6.6 g/dL (13.5-17.5); Mean Corpuscular HGB 19.3 pg (26.0-34.0); Mean Corpuscular HGB Conc 29.3 g/dL (31.5-36.5); Mean Corpuscular Volume 66 fL (80-100); Mean Platelet Volume 9.3 fL (9.1-12.4); NRBC ABSOLUTE 0.02 K/mm3 (0.00-0.02); NRBC Auto 0.2 /100 WBC (0.0-0.2); Platelet Count 422 K/mm3 (150-400); RDW Standard Deviation 52.4 fL (35.1-46.3); Red Blood Cell Count 3.42 M/mm3 (4.30-5.90); White Blood Cell Count 11.28 K/mm3 (4.00-11.30)
[2024-05-14 15:28] LABS: Albumin, Blood 2.7 g/dL (3.4-5.0); Albumin/Globulin Ratio 0.6 (0.8-1.8); Bilirubin, Total 0.5 mg/dL (0.1-1.0); Bun/Creatinine Ratio 18.9 (12.0-20.0); Calcium, Blood 8.9 mg/dL (8.5-10.1); Creatinine, Blood 2.38 mg/dL (0.60-1.20); Globulin, Blood 4.5 g/dL (2.2-4.0); Potassium, Blood 4.8 mmol/L (3.5-5.5); Total Protein, Blood 7.2 g/dL (6.4-8.2)
[2024-05-14 15:33] LABS: International Normalized Ratio 1.08; Prothrombin Time Results 11.5 Sec (9.7-11.5)
[2024-05-14 15:35] LABS: BASOPHILS PERCENT MAN 0 % (0-2); EOSINOPHILS PERCENT MAN 0 % (0-6); LYMPHOCYTES PERCENT MAN 16 % (21-46); MONOCYTES ABSOLUTE MAN 0.45 K/mm3 (0.16-1.47); MONOCYTES PERCENT MAN 4 % (4-13); NEUTROPHILS ABSOLUTE MAN 9.02 K/mm3 (1.96-9.15); SEG NEUTROPHILS PERCENT MAN 80 % (41-73); TOTAL CELLS COUNTED 100
[2024-05-14] MEDS ORDERED: NS 1,000 ML IV SCH ×2 (16:55→18:15)
[2024-05-14 18:10] LABS: Percent Saturation 5.8 % (20.0-50.0)
[2024-05-14] MEDS ORDERED: Melatonin 3 MG Tab PO PRN (18:15)
[2024-05-14] MEDS ORDERED: Ondansetron HCl 2 MG / ML 2ML Vial IV PRN (18:15)
[2024-05-14 18:58] LABS: Base Excess Venous -6.2 mmol/L; Bicarbonate Venous 19.4 mmol/L (24.0-30.0); PCO2 Venous 30.2 mmHg (38-42)
[2024-05-14] MEDS ORDERED: NS 1,000 ML IV ONE (18:59)
[2024-05-14 19:00] LABS: IMMATURE RETIC FRACTION 43.1 % (2.3-16.0); RETIC HGB EQUIVALENT 20.5 pg (28.20-36.60); RETICULOCYTE ABSOLUTE 0.0755 M/mm3 (0.0200-0.1100); RETICULOCYTE COUNT PERCENT 2.36 % (0.50-2.50)
[2024-05-14] MEDS ORDERED: NS 500 ML IV SCH (21:50)
[2024-05-14] MEDS ORDERED: TAMSULOSIN HCL0.4 M1 PO (21:55)
[2024-05-14] MEDS ORDERED: CENTRUM SILVER1 EAC2 PO (21:56)
[2024-05-14 22:12] VITALS: BP 120/72
[2024-05-14 22:44] VITALS: BP 123/72
[2024-05-14 23:01] VITALS: BP 114/80
[2024-05-15] VITALS (11 sets, daily range): BP systolic 105–148; BP diastolic 65–96
[2024-05-15] MEDS ORDERED: Sodium Bicarb 8.4% Inj 150 MEQ in Dextrose 5% 1,000 ML IV SCH (01:00)
--- NOTE | 2024-05-15 01:27 | NUR ---
UPDATE LAST PRBC TRANSFUSED; WHILE DOING BLADDER SCAN FOR POTENTIAL STRAIGHT CATHETERIZATION. PT STATED IV SITE WAS PAINFUL. GOLF BALL SIZED HEMATOMA NOTED W/ IV INFILTRATION. IV PULLED AND WARM COMPRESS APPLIED; DR MENEZES AWARE. PT ALSO PULLED WRIST IV.
[2024-05-15 02:25] LABS: BASOPHILS ABSOLUTE AUTO 0.02 K/mm3 (0.00-0.23); BASOPHILS PERCENT AUTO 0 % (0-2); EOSINOPHILS ABSOLUTE AUTO 0.01 K/mm3 (0.00-0.68); EOSINOPHILS PERCENT AUTO 0 % (0-6); Hematocrit 29.4 % (37.0-53.0); Hemoglobin 9.2 g/dL (13.5-17.5); IMMATURE GRAN ABSOLUTE AUTO 0.06 K/mm3 (0.00-0.10); IMMATURE GRAN PERCENT AUTO 1 % (0-1); LYMPHOCYTES ABSOLUTE AUTO 1.22 K/mm3 (0.84-5.20); LYMPHOCYTES PERCENT AUTO 9 % (21-46); MONOCYTES ABSOLUTE AUTO 0.98 K/mm3 (0.16-1.47); MONOCYTES PERCENT AUTO 8 % (4-13); Mean Corpuscular HGB 22.1 pg (26.0-34.0); Mean Corpuscular HGB Conc 31.3 g/dL (31.5-36.5); Mean Corpuscular Volume 71 fL (80-100); Mean Platelet Volume 9.2 fL (9.1-12.4); NEUTROPHILS ABSOLUTE AUTO 10.65 K/mm3 (1.96-9.15); NEUTROPHILS PERCENT AUTO 82 % (41-73); NRBC ABSOLUTE 0.03 K/mm3 (0.00-0.02); NRBC Auto 0.2 /100 WBC (0.0-0.2); Platelet Count 359 K/mm3 (150-400); RDW Coefficient Variation 26.9 % (11.7-14.2); RDW Standard Deviation 65.9 fL (35.1-46.3); Red Blood Cell Count 4.17 M/mm3 (4.30-5.90); White Blood Cell Count 12.94 K/mm3 (4.00-11.30)
--- NOTE | 2024-05-15 02:41 | NUR ---
UPDATE DR MENEZES NOTIFIED OF LACTIC ACID W/ ORDERS FOR FLUID CHANGE TO BICARB AND UA WHEN POSSIBLE; BLADDER SCAN SHOWED 15ML W/ DR MENEZES OK W/ WAITING ON UA D/T AFEBRILE AND NO LEUKOCYTOSIS.
--- NOTE | 2024-05-15 02:44 | NUR ---
ASSUMED CARE PT IS A&O X1; AT BEDSIDE. PT IS CONFUSED, REORIENTABLE, BUT FORGETFUL; BASELINE MENTATION PER . VSS AT THIS TIME; PT INTERMITTENTLY BREATHES HEAVILY, BUT DENIES SOB AND SPO2 >92% ON RA. 2PRBC TOTAL INFUSED AT THIS TIME; PT DENIES CP AND NAUSEA. PT RESTLESS, REORIENTABLE, BUT FORGETS MINUTES LATER. 2 IV'S PULLED BY PT W/ 1 INFILTRATED AT END OF TRANSFUSION (SEE UPDATE NOTE) AND RFA IV PULLED APPEARS TO HAVE INFILTRATED. PHARMACY CONSULTED FOR POTENTIAL BICARB EXTRAVASATION W/ ORDERS TO MONITOR FOR NEXT HOUR AND NOTIFY IF SITE GETS WORSE W/ HYALURONIDASE TO BE USED. SITE DEMARCATED W/ SHARPIE, NO REDNESS NOTED, JUST SOME BRUISING; FIRMNESS AND SLIGHT SWELLING NOTED.
[2024-05-15 02:45] LABS: Albumin, Blood 2.8 g/dL (3.4-5.0); Albumin/Globulin Ratio 0.6 (0.8-1.8); Bilirubin, Total 1.7 mg/dL (0.1-1.0); Bun/Creatinine Ratio 18.7 (12.0-20.0); Calcium, Blood 8.7 mg/dL (8.5-10.1); Creatinine, Blood 2.84 mg/dL (0.60-1.20); Globulin, Blood 4.5 g/dL (2.2-4.0); Potassium, Blood 4.9 mmol/L (3.5-5.5); Total Protein, Blood 7.3 g/dL (6.4-8.2)
--- NOTE | 2024-05-15 03:56 | NUR ---
UPDATE PT GAGGING/COUGHING AND WENT INTO ROOM AND PT HAD SPIT UP DARK BROWN/COFFEE GROUND-LIKE EMESIS (SMALL AMOUNT ONTO BED), WHILE GETTING READY TO ADMINISTER ZOFRAN D/T NAUSEA PT WENT INTO SVT AND THEN INTO VTACH FOR APPROX 30 SECONDS; HAD PT BEAR DOWN AND PT CONVERTED INTO SINUS RHYTHM 60'S. BLOOD PRESSURE 148/78 AFTER EVENT. PT DENIES CP AND NAUSEA AT THIS TIME. RESTING QUIETLY. DR QUIJANO AWARE W/ ORDERS FOR GI CONSULT, NO OTHER ORDERS AT THIS TIME.
--- NOTE | 2024-05-15 04:54 | NUR ---
UPDATE PT COMPLAINING OF CP "FEELS LIKE A WEIGHT" STARTED APPROX 1 HOUR AGO PER PT AND IS NOT RADIATING. LOCALIZED TO MIDDLE/UPPER CHEST AREA. PT DENIES ANY FLUCTUATION W/ PAIN DURING INHALATION/EXHALATION. PT CONTINUES TO BE CONFUSED, BUT APPEARS TO ANSWER QUESTIONS APPROPRIATELY.
--- NOTE | 2024-05-15 05:00 | NUR ---
UPDATE DR QUIJANO AT DESK TO LOOK AT ECG, NO NEW ORDERS AT THIS TIME.
--- NOTE | 2024-05-15 05:14 | NUR ---
UPDATE REASSESSING CP AND PT NOW STATES THAT CP FLUCTUATES WHILE BREATHING; GETS WORSE WHEN INHALING. CONTINUES TO DENY RADIATION OF PAIN
--- NOTE | 2024-05-15 05:30 | NUR ---
SHIFT SUMMARY SEVERAL EVENTS OVERNIGHT (SEE PREVIOUS NOTES FOR DETAILS). PT COMPLAINING OF CP THIS AM, COFFEE GROUND EMESIS W/ EPISODE OF SVT/VT, AND INFILTRATION OF SOME BLOOD DURING TRANSFUSION. DR MENEZES/SAMM AWARE. DR QUIJANO CALLED THIS AM D/T PT C/O OF CP THAT IS NOW SHARP AND FLUCTUATING WHILE BREATHING W/ ORDERS FOR NITRO PASTE TO BE APPLIED.
[2024-05-15] MEDS ORDERED: Insulin Regular 100 UNIT/ML 10ML Vial SC SCH (06:00)
[2024-05-15] MEDS ORDERED: Pantoprazole Sodium 40 MG Tab PO SCH ×2 (06:00→16:30)
[2024-05-15] MEDS ORDERED: NITROGLYCERIN 0.6 MG/HR TOP ONE (06:00)
[2024-05-15] MEDS ORDERED: Pantoprazole Sodium 40 MG in NS 50 ML IV SCH (06:55)
[2024-05-15] MEDS ORDERED: Atorvastatin 40 MG Tab PO SCH (09:00)
[2024-05-15] MEDS ORDERED: Clopidogrel Bisulfate 75 MG Tab PO SCH (09:00)
[2024-05-15] MEDS ORDERED: Aspirin 81 MG Chew PO SCH (09:00)
[2024-05-15] MEDS ORDERED: Tamsulosin HCl 0.4 MG Cap PO SCH (09:00)
[2024-05-15] MEDS ORDERED: Furosemide 10 MG / ML 2ML Vial IV ONE ×2 (10:15→10:40)
[2024-05-15] MEDS ORDERED: Carvedilol 3.125 MG Tab PO SCH (12:00)
--- NOTE | 2024-05-15 14:03 | NUR ---
NURSE NOTE PATIENT TRANSITIONING TO COMFORT CARE AT THIS TIME. REMAINS AT BEDSIDE, CALL LIGHT IN REACH. WILL CONTINUE TO TREAT.
[2024-05-15] MEDS ORDERED: LORazepam 1 MG Tab PO PRN (14:05)
[2024-05-15] MEDS ORDERED: Scopolamine Hydrobromide Patch TOP PRN (14:05)
[2024-05-15] MEDS ORDERED: Morphine Sulfate 20 MG/1ML 1 ML Oral Syringe SL PRN (14:05)
[2024-05-15] MEDS ORDERED: Atropine Sulfate 1% Opth Soln 2ML BTL SL PRN (14:10)
[2024-05-15] MEDS ORDERED: Nicotine 14 MG PATCH TOP SCH (16:55)
--- NOTE | 2024-05-15 17:26 | NUR ---
SHIFT SUMMARY PATIENT IS A+O X2-3, FORGETFUL ON LOCATION, DATE AND SITUATION. ABLE TO REORIENTATE PATIENT. ALTHOUGH PATIENT IS FORGETFUL HE IS PLEASANT AND AGREEABLE WITH CARE. ABLE TO MAKE NEEDS KNOWN. REPOSTIONING PATIENT IN BED, HAS BEEN BEDREST DURING SHIFT DUE TO OVERALL WEAKNESS AND FEELING UNSTEADY. PATIENT TRANSTIONED TO COMFORTCARE AND HAS BEEN MEDICATED WITH ROXONAL X2 5MG. THIS MEDICATION HELPED TO DECREASE WOB AND MINIMIZED PATIENT BACK PAIN. PLAN IS TO DISCHARGE HOME TOMORROW WITH HOSPICE CARE. HAS REMAINED AT BEDSIDE THROUGHOUT SHIFT, AND WILL USE CALL LIGHT TO ALERT STAFF OF PATIENT NEEDS. BED ALARM ON WHEN NO ONE IS INT HE ROOM. BED IN LOWEST POSTION, SIDE RAILS UP X2. WILL CONTINUE TO TREAT UNTIL SHIFT CHANGE.
--- NOTE | 2024-05-16 00:42 | NUR ---
UPDATE ASSUMED CARE OF PT AT 1900, PT AWAKE AND ALERT, CONFUSED, PLEASANT, FOLLOWS COMMANDS, NO TELEMETRY ORDERED, COMFORT CARE ORDERED, FAMILY AT BEDSIDE, PT C/O PAIN TO BACK AND WHEN ATTEMPTING TO URINATE, MEDICATED WITH ROXANOL 5MG X3 PT RESTLESS AND ANXIOUS IN BED, UNABLE TO STAY ASLEEP FOR 15-20 MINUTES, PLACED ON 2 LPM NC FOR O2 SAT 86% ON RA AND MEDICATED WITH ATIVAN 1MG PO AT 2344, PT RESTING WITH EYES CLOSED AT THIS TIME RESP EVEN AND UNLABORED SPO2 >90% SPOUSE REMAINS AT PT SIDE, SIDE RAILS UP X2, CALL LIGHT IN REACH
--- NOTE | 2024-05-16 06:10 | NUR ---
SHIFT SUMMARY NO ACUTE EVENTS, PT RESTING QUIETLY WITH EYES CLOSED AFTER ATIVAN GIVEN, REMAINS AT PT SIDE, O2 REMOVED WITH SPO2>90% ON RA, PUREWICK IN PLACE AND CANNISTER EMPTIED OF 150 ML DARK CLOUDY TEA COLORED URINE NO DISTRESS NOTED, SIDE RAILS UP X2 CALL LIGHT IN REACH
[2024-05-16] MEDS ORDERED: ATROPINE SULFATE2 M1 SL ×2 (11:08)
[2024-05-16] MEDS ORDERED: Ativan1 MG PO ×2 (11:09)
[2024-05-16] MEDS ORDERED: Nicoderm Cq1 EAC1 TOP ×2 (11:10)
[2024-05-16] MEDS ORDERED: MORP20L SL ×2 (11:10)
[2024-05-16] MEDS ORDERED: TRANSDERM-SCOP1 EA13 TD ×2 (11:11)
--- NOTE | 2024-05-16 12:26 | NUR ---
NURSE NOTE PATIENT DISCHARGE WENT OVER WITH SPOUSE. PATIENT SLIDE OVER ONTO [facility] AND TRANSPORTED VIA [facility].
== END 2024-05-16 12:00 | disposition hospice, home (50) | DRG 280 ==
LOC: ER 14:40 → ERHOLD 18:10 → PCU 18:10
PROVIDERS: Emergency Medicine; Nurse Practitioner Acute Care; Student in an Organized Health Care Education/Training Program; ADMIT Student in an Organized Health Care Education/Training Program
PROC: 30233N1 Transfusion of Nonautologous Red Blood Cells into Peripheral Vein, Percutaneous Approach (ICD-10-PCS; principal; 2024-05-14)
DX: I21.4 Non-ST elevation (NSTEMI) myocardial infarction (principal); I50.21 Acute systolic (congestive) heart failure; D62 Acute posthemorrhagic anemia; N17.9 Acute kidney failure, unspecified; I47.10 Supraventricular tachycardia, unspecified; N13.30 Unspecified hydronephrosis; K92.0 Hematemesis; I51.81 Takotsubo syndrome; E87.21 Acute metabolic acidosis; Z66 Do not resuscitate; Z51.5 Encounter for palliative care; I25.5 Ischemic cardiomyopathy; N18.30 Chronic kidney disease, stage 3 unspecified; K21.9 Gastro-esophageal reflux disease without esophagitis; F17.210 Nicotine dependence, cigarettes, uncomplicated; N40.0 Benign prostatic hyperplasia without lower urinary tract symptoms; F03.90 Unspecified dementia, unspecified severity, without behavioral disturbance, psychotic disturbance, mood disturbance, and anxiety; I73.9 Peripheral vascular disease, unspecified; I25.10 Atherosclerotic heart disease of native coronary artery without angina pectoris; D72.829 Elevated white blood cell count, unspecified; Z79.899 Other long term (current) drug therapy; Z79.02 Long term (current) use of antithrombotics/antiplatelets; Z85.51 Personal history of malignant neoplasm of bladder; Z90.89 Acquired absence of other organs; Z98.52 Vasectomy status; Z87.19 Personal history of other diseases of the digestive system; Z98.890 Other specified postprocedural states; Z98.41 Cataract extraction status, right eye; Z79.82 Long term (current) use of aspirin; Z93.6 Other artificial openings of urinary tract status; Z79.01 Long term (current) use of anticoagulants; Z86.79 Personal history of other diseases of the circulatory system; Z95.820 Peripheral vascular angioplasty status with implants and grafts; I25.2 Old myocardial infarction
CPT/HCPCS: 36415; 71045; 71046; 76770; 80053; 82607; 82746; 82803; 82947; 83540; 83550; 83605; 83735; 83880; 84484; 85025; 85045; 85379; 85610; 85730; 86850; 86900; 86901; 86923; 87040; 93005; 93010; 99284-25; A9270; C8929; J1815; J1940; J2405; J7030; J7070; P9016; Q9957

== ENCOUNTER → 2024-05-14 | Outpatient (CLI) | payer MEDICARE ==
[~2024-05-14] MED LIST changes: +ATROPINE SULFATE2 M1 SL; +Ativan1 MG PO; +CENTRUM SILVER1 EAC2 PO; +MELA3 PO; +MORP20L SL; +Nicoderm Cq1 EAC1 TOP; +TAMSULOSIN HCL0.4 M1 PO; +TRANSDERM-SCOP1 EA13 TD; +TRAZ50 PO
[2024-05-14 13:58] LABS: BASOPHILS ABSOLUTE AUTO 0.01 K/mm3 (0.00-0.23); BASOPHILS PERCENT AUTO 0 % (0-2); EOSINOPHILS PERCENT AUTO 0 % (0-6); Hematocrit 22.4 % (37.0-53.0); Hemoglobin 6.6 g/dL (13.5-17.5); IMMATURE GRAN ABSOLUTE AUTO 0.07 K/mm3 (0.00-0.10); IMMATURE GRAN PERCENT AUTO 1 % (0-1); LYMPHOCYTES ABSOLUTE AUTO 1.51 K/mm3 (0.84-5.20); LYMPHOCYTES PERCENT AUTO 13 % (21-46); MONOCYTES ABSOLUTE AUTO 0.96 K/mm3 (0.16-1.47); MONOCYTES PERCENT AUTO 8 % (4-13); Mean Corpuscular HGB 18.8 pg (26.0-34.0); Mean Corpuscular HGB Conc 29.5 g/dL (31.5-36.5); Mean Corpuscular Volume 64 fL (80-100); Mean Platelet Volume 8.9 fL (9.1-12.4); NEUTROPHILS ABSOLUTE AUTO 8.98 K/mm3 (1.96-9.15); NEUTROPHILS PERCENT AUTO 78 % (41-73); Platelet Count 397 K/mm3 (150-400); RDW Coefficient Variation 22.9 % (11.7-14.2); RDW Standard Deviation 50.4 fL (35.1-46.3); Red Blood Cell Count 3.51 M/mm3 (4.30-5.90); White Blood Cell Count 11.53 K/mm3 (4.00-11.30)
[2024-05-14 14:10] LABS: Albumin, Blood 2.7 g/dL (3.4-5.0); Albumin/Globulin Ratio 0.6 (0.8-1.8); Bilirubin, Total 0.5 mg/dL (0.1-1.0); Bun/Creatinine Ratio 14.8 (12.0-20.0); Calcium, Blood 9.1 mg/dL (8.5-10.1); Creatinine, Blood 3.04 mg/dL (0.60-1.20); Globulin, Blood 4.8 g/dL (2.2-4.0); Potassium, Blood 4.7 mmol/L (3.5-5.5); Total Protein, Blood 7.5 g/dL (6.4-8.2)
== END | disposition home or self-care (01) ==
LOC: LAB 13:52 → LAB SHORT 13:52
PROVIDERS: Family Medicine
DX: R06.00 Dyspnea, unspecified (principal)
CPT/HCPCS: 80053; 85025; 85379